=== PATIENT | female | born 1960 | race African-American/Black ===

== ENCOUNTER 2016-05-31 10:17 | Emergency (ER) | payer OTHER ==
--- NOTE | ~2016-05-31 | CR63 ---
[facility] A Service of [facility] & [facility] RADIOLOGY TEXT RESULTS PATIENT: MICHAELA NICOLE LOCATION: [facility]FT[facility] : 58 UNIT #: [id number] AGE: [address]: Yudy Blanchard APRN SEX: F ORDER DR: [id number] [facility] [address] [place], [place] [address] [id number] E MR#: [id number] #: [id number] NAME: MICHAELA NICOLE : 1960 SEX: F STUDY DATE/TIME: 05/31/2016 11:11 UNIT: [facility] ROOM: STUDY DESCRIPTION: CR Chest 2 View Attending Physician: Yudy Blanchard A.P.R.N. Ordering Physician: Ed George Austin M.D. Primary Care Physician: [facility] MEDICAL IMAGING REPORT This report is preliminary unless electronic signature is present EXAM Chest x-ray HISTORY Shortness of breath and wheezing for the past 2 days. Recently diagnosed with pneumonia. TECHNIQUE 2 views of the chest were obtained and compared with 04/29/2016 FINDINGS The right upper lobe infiltrate seen laterally on the previous examination has cleared. On the lateral view, however there is an infiltrate seen probably in the right middle lobe that was not noted on previous exam. The left lung is clear and no pleural fluid is seen. IMPRESSION The right upper lobe infiltrate seen in the previous examination of 04/29/2016 is cleared. However, there is a new right middle lobe infiltrate noted best seen on the lateral view. Dictated by... Ranulfo Barraza M.D. THIS IS AN ELECTRONICALLY VERIFIED REPORT Ranulfo Barraza M.D. at 06/01/2016 10:47 AM RLF/to TD: 05/31/2016 16:01 JOB #: [id number] MEDICAL IMAGING REPORT Page 1 of 1 COPY
--- NOTE | ~2016-05-31 | US85 ---
[facility] A Service of [facility] RADIOLOGY TEXT RESULTS PATIENT: MICHAELA NICOLE LOCATION: [place] : 58 UNIT #: [id number] AGE: [address]: Yudy Blanchard APRN SEX: F ORDER DR: [id number] [facility] [address] [place], [place] [address] [id number] E MR#: [id number] Acc #: [id number] NAME: MICHAELA NICOLE : 1960 SEX: F STUDY DATE/TIME: 05/31/2016 11:05 UNIT: CFTX ROOM: STUDY DESCRIPTION: [facility] Attending Physician: Yudy Blanchard A.P.R.N. Ordering Physician: Ed Doctor [id number] [facility] REPORT This report is preliminary unless electronic signature is present EXAM Color Doppler ultrasound examination of the right lower extremity HISTORY Right leg pain for the past 3 days. No history of prior DVT. TECHNIQUE Evaluation was performed with gillespie-scale color-flow Doppler spectral waveform analysis. TECHNIQUE Venous ultrasound examination of the right lower extremity was performed using grayscale, spectral Doppler and color flow Doppler imaging. FINDINGS The examination is negative. There is no evidence of right lower extremity deep venous thrombus from the groin to the lower calf. Visualized greater saphenous vein is also patent. IMPRESSION Negative examination. No evidence of right lower extremity deep venous thrombosis. Dictated by... Ranulfo Barraza M.D. THIS IS AN ELECTRONICALLY VERIFIED REPORT Ranulfo Barraza M.D. at 06/01/2016 10:47 AM ADAN/kurt TD: 05/31/2016 15:44 JOB #: [id number] [facility] A Service of [facility] & [facility] RADIOLOGY TEXT RESULTS PATIENT: MICHAELA NICOLE LOCATION: [place] : 58 UNIT #: [id number] AGE: [address]: Yudy Blanchard APRN SEX: F ORDER DR: MEDICAL IMAGING REPORT Page 1 of 1 COPY
--- NOTE | ~2016-05-31 | CR151 ---
[facility] A Service of [facility] & [facility] RADIOLOGY TEXT RESULTS PATIENT: MICHAELA NICOLE LOCATION: [facility]FT[facility] : 58 UNIT #: [id number] AGE: [address]: Yudy Blanchard APRN SEX: F ORDER DR: [id number] [facility] [address] [place], [place] [address] [id number] E MR#: [id number] Acc #: [id number] NAME: MICHAELA NICOLE : 1960 SEX: F STUDY DATE/TIME: 05/31/2016 11:11 UNIT: CFTX ROOM: STUDY DESCRIPTION: CR Hip Min 2 Views Rt Attending Physician: Yudy Blanchard A.P.R.N. Ordering Physician: Michi Austin M.D. [facility] REPORT This report is preliminary unless electronic signature is present EXAM Right hip HISTORY Hip pain radiating down the right leg for the past 2 days no known trauma TECHNIQUE 2 views of the hip were obtained. FINDINGS 2 views of the hip show a rounded soft tissue calcification near the trochanteric region of the femur measuring about 1 cm in diameter likely from previous injection. The hip joint itself is normal. The acetabulum is intact. The remainder of the bony pelvis is unremarkable. IMPRESSION Injection granuloma on the right. Otherwise negative right hip Dictated by... Ranulfo Barraza M.D. THIS IS AN ELECTRONICALLY VERIFIED REPORT Ranulfo Barraza M.D. at 06/01/2016 10:47 AM ADAN/amalia TD: 05/31/2016 16:04 JOB #: [id number] MEDICAL IMAGING REPORT Page 1 of 1 COPY
[~2016-05-31 10:17] MED LIST: ASPIRIN81 M2 PO; COMBIVENT U/D3 M4 INH; DEPAKOTE PO; DITROPAN XL5 M2 PO; DITROPAN5 MG PO; HUMIBID-LA600 MG PO; IMDUR-ER30 M3 PO; LEVAQUIN750 M1 PO; LEVAQUIN750 MG PO; LISINOPRIL2.5 MG; LISINOPRIL20 MG PO; MUCINEX DM ER1 EACH PO; NICOTINE TRANSD14 MG EXT; RISPERDAL3 MG PO; STERAPRED5 MG/DOSE1 PO; SYMBICORT INH; ZOCOR-BORROW, D10 MG; ZOCOR10 MG PO
[2016-05-31 13:24] LABS: BASOPHIL# 0.1 X10e3 (0-0.3); BASOPHIL% 0.9 % (0-2.5); EOSINOPHIL# 0.1 X10e3 (0-0.7); EOSINOPHIL% 0.9 % (0.0-7.0); HEMATOCRIT 46.1 % (35.0-45.0); HEMOGLOBIN 14.9 gm/dL (12.0-16.0); LYMPHOCYTE% 63.7 % (17.0-45.0); MEAN CELL VOLUME 94.5 FL (83-96); MEAN CORPUSCULAR HEMOGLOBIN 30.5 PG (28-34); MEAN CORPUSCULAR HGB CONC 32.3 g/dL (30-36); MEAN PLATELET VOLUME 7.5 FL (6.5-11.5); MONOCYTE# 0.4 X10e3 (0-1.0); MONOCYTE% 4.6 % (3.0-12.0); NEUTROPHIL# 2.8 X10e3 (1.5-7.1); NEUTROPHIL% 29.9 % (40-75); PLATELET COUNT 166 X10e3 (140-420); RED BLOOD COUNT 4.88 X10e (3.90-5.30); RED CELL DISTRIBUTION WIDTH 15.5 % (11.0-15.5); WHITE BLOOD COUNT 9.5 X10e3 (4.0-10.5)
[2016-05-31 13:26] LABS: DIFF IND YES
[2016-05-31 13:57] LABS: PLATELET ESTIMATE NORMAL (NORMAL)
[2016-05-31 13:58] LABS: RBC NORMAL YES
[2016-05-31 14:22] LABS: ALBUMIN SERUM 3.7 g/dL (3.5-5.0); ALKALINE PHOSPHATASE 68 U/L (32-92); ALT (SGPT) 14 U/L (10-40); AST (SGOT) 15 U/L (10-42); BILIRUBIN,TOTAL 0.6 mg/dL (0.2-2.0); BLOOD UREA NITROGEN 9 mg/dL (9-23); CALCIUM SERUM 8.9 mg/dL (8.4-10.2); CARBON DIOXIDE 27 mmol/L (22-31); CHLORIDE 94 mmol/L (100-111); CREATININE SERUM 0.5 mg/dL (0.6-1.4); GLOM FILT RATE Estimated ABOVE60 mL/min (>60); GLUCOSE FASTING 83 mg/dL (70-110); POTASSIUM 4.4 mmol/L (3.5-5.1); PROTEIN TOTAL SERUM 7.2 g/dL (6.0-8.3); SODIUM 130 mmol/L (135-145)
== END 2016-05-31 15:15 | disposition home or self-care (01) ==
LOC: CFTX 10:17
PROVIDERS: Nurse Practitioner
DX: M25.551 Pain in right hip (principal); M79.651 Pain in right thigh; I11.0 Hypertensive heart disease with heart failure; I50.9 Heart failure, unspecified; E78.5 Hyperlipidemia, unspecified; J44.9 Chronic obstructive pulmonary disease, unspecified; F17.210 Nicotine dependence, cigarettes, uncomplicated; Z88.8 Allergy status to other drugs, medicaments and biological substances
CPT/HCPCS: 36415; 71020; 73502; 80053; 83605; 85025; 87040; 93971; 94640; 96372; 99284; J2270